=== PATIENT | male | born 1990 | race Caucasian/White ===

== ENCOUNTER 2022-03-17 14:28 | Emergency (ER) | payer MEDICAID ==
[~2022-03-17] VITALS: Ht 172.7 cm; Wt 70.3 kg
--- NOTE | 2022-03-17 14:50 | NUR ---
BIBS W/ C/O CHRONIC PAIN, LOWER BACK R/T RLE. BODY PAIN WORST X 2-3 DAYS. TO ER BED 11.
[2022-03-17] MEDS ORDERED: LIDO30AD10 TP (15:51)
[2022-03-17] MEDS ORDERED: CYCL5TAB PO (15:51)
[2022-03-17] MEDS ORDERED: KETOROLAC TROMETHAMINE INJ 30 MG/ML VIAL ONE (15:53)
[2022-03-17] MEDS ORDERED: LIDOCAINE 5% (PATCH) 1 EA PATCH TP ONE ×2 (15:53→16:00)
[2022-03-17] MEDS ORDERED: KETOROLAC TROMETHAMINE INJ 30 MG/ML VIAL IM ONE (16:00)
[2022-03-17 16:50] VITALS: BP 118/72
== END 2022-03-17 16:50 | disposition home or self-care (01) ==
LOC: ER 14:41
DX: S39.012A Strain of muscle, fascia and tendon of lower back, initial encounter (principal); M54.16 Radiculopathy, lumbar region; Z79.899 Other long term (current) drug therapy; X50.0XXA Overexertion from strenuous movement or load, initial encounter; Y93.89 Activity, other specified; Y92.89 Other specified places as the place of occurrence of the external cause; Y99.8 Other external cause status
CPT/HCPCS: 99283; 96372; J1885